=== PATIENT | male | born 1945 | race Caucasian/White ===

== ENCOUNTER → 2020-02-24 | Outpatient (CLI) | payer MEDICARE, BC ==
--- NOTE | 2020-02-24 14:44 | RADIOLOGY REPORT (SQ) ---
EXAM DESCRIPTION: MRI RT UPPER EXTREMITY WITHOUT IMAGES COMPLETED DATE/TIME: 02/24/2020 10:46 am REASON FOR STUDY: R22.31 LOCALIZED SWELLING, MASS AND LUMP, RIGHT UPPER LIMB R22.31 LOCALIZED SWELL ING, MASS AND LUMP, RIGHT UPPER LIMB COMPARISON: None. TECHNIQUE: Multiplanar imaging of the distal forearm and wrist to include fat and fluid sensitive se quences. LIMITATIONS: Limited resolution of the wrist given wide field of view necessary to include the forea rm. FINDINGS: BONE MARROW: Marrow signal in the radius and ulna are normal. Marrow edema in the thumb a nd trapezium with associated joint space narrowing and spurring consistent with degenerative change h ere. SOFT TISSUES: Slightly prominent fatty tissue in the region of interest along the palmar radial aspec t of the distal forearm. Partially circumscribed lipoma here likely measures 1.6 cm or more in the t ransverse plane ; this is close to 3 cm along the length of the forearm. OTHER: No other significant finding. IMPRESSION: 1. In the region of interest along the distal forearm there appears to be prominent fatty tissue, lik erik lipoma. No suspicious features or findings. 2. Thumb base DJD. TECHNICAL DOCUMENTATION: JOB ID: [id number] 2010 [employer]- All Rights Reserved Reading location - IP/workstation name: [email or web address]
== END ==
LOC: RAD 10:13
PROVIDERS: ATTEND Physician Assistant
DX: M19.041 Primary osteoarthritis, right hand (principal); R22.31 Localized swelling, mass and lump, right upper limb